=== PATIENT | male | born 1935 | race Caucasian/White ===

== ENCOUNTER 2017-02-23 15:44 | Emergency (ER) | payer BC, OTHER ==
[~2017-02-23] VITALS: Ht 188 cm; Wt 104.3 kg
[~2017-02-23 15:44] MED LIST: CHOL20007 PO; METF-370 PO; SITA50TA PO
[2017-02-23] MEDS ORDERED: ONDANSETRON HCL 4 MG/2 ML VIAL IV ONE (17:30)
[2017-02-23] MEDS ORDERED: MORPHINE SULFATE 10 MG/ML INJ 1ML SDV IV ONE ×2 (17:30→20:15)
[2017-02-23 17:35] LABS: Basophils # (auto) 0.1 uL; Basophils % (auto) 0.7 % (0.0-2.0); Eosinophils # (auto) 0.1 uL; Eosinophils % (auto) 1.8 % (0.0-7.0); Hematocrit 37.2 % (41.0-53.0); Hemoglobin 12.2 g/dL (13.5-17.5); Lymphocytes # (auto) 1.6 uL; Lymphocytes % (auto) 21.9 % (10.0-50.0); Mean Corpuscular Hemoglobin 28.3 pg (28.0-32.0); Mean Corpuscular Hgb Conc. 32.8 g/dL (32.0-36.0); Mean Corpuscular Volume 86.1 fL (80.0-100.0); Monocytes % (auto) 13.2 % (0.0-12.0); Neutrophils # (auto) 4.6 uL; Neutrophils % (auto) 62.4 % (37.0-80.0); Nucleated Red Blood Cells % 0.1 %; Platelet Count (auto) 251 10^3/uL (140-450); Red Blood Cells 4.32 10^6/uL (4.5-5.90); Red Cell Distribution Width 14.3 % (11.8-14.3); White Blood Cell 7.3 10^3/uL (4.4-10.8)
[2017-02-23 17:42] LABS: Albumin 3.2 g/dL (3.4-5.0); Anion Gap 8 (5-15); Calcium 8.8 mg/dL (8.5-10.1); Carbon Dioxide 29 mmol/L (21-32); Chloride 100 mmol/L (98-107); Sodium 137 mmol/L (136-145)
[2017-02-23 17:45] LABS: Alanine Aminotransferase 20 U/L (16-61); Aspartate Aminotransferase 10 U/L (15-37); BUN/Creatinine Ratio 17.5; Blood Urea Nitrogen 18 mg/dL (7-18); GFR African American 89 mL/min; GFR Non-African American 73 mL/min; Glucose 342 mg/dL (74-106); Magnesium 2.3 mg/dL (1.6-2.6)
[2017-02-23 17:50] LABS: Alkaline Phosphatase 83 U/L (45-117); Bilirubin, Total 0.8 mg/dL (0.2-1.0); Total Protein 7.2 g/dL (6.4-8.2)
[2017-02-23] MEDS ORDERED: InsuLIN REG 1unit/0.01ml Soln (100units/ml) IV ONE ×2 (18:30→20:15)
[2017-02-23] MEDS ORDERED: SODIUM CHLORIDE 0.9% 1,000 ML IV ONE (18:45)
[2017-02-23] MEDS ORDERED: cloNIDine HCL 0.1 MG TAB ONE (19:03)
[2017-02-23 19:05] LABS: Urine Bacteria NONE SEEN /hpf (None Seen); Urine Blood Negative /uL (Negative); Urine Specific Gravity 1.041 (1.001-1.035); Urine WBC <1 /hpf (0 - 3)
[2017-02-23] MEDS ORDERED: cloNIDine HCL 0.1 MG TAB PO ONE (19:15)
[2017-02-23 20:52] VITALS: BP 106/58
== END 2017-02-23 21:17 | disposition home or self-care (01) ==
LOC: ER 15:44
DX: R07.89 Other chest pain (principal); M19.90 Unspecified osteoarthritis, unspecified site; E11.9 Type 2 diabetes mellitus without complications; I10 Essential (primary) hypertension; E78.5 Hyperlipidemia, unspecified; Z87.442 Personal history of urinary calculi
CPT/HCPCS: 36415; 71010; 80053; 81001; 82962; 83036; 83735; 84484; 85025; 85652; 93005; 94761; 96361; 96374; 96375; 96376; 99285; J1815; J2270; J2405; J7030

== ENCOUNTER 2017-06-22 09:44 | Inpatient (IN) | payer MEDICARE, BC ==
[~2017-06-22] VITALS: Ht 188 cm; Wt 109.0 kg
[2017-06-22] MEDS ORDERED: SODIUM CHLORIDE 0.9% 1,000 ML IV ONE (10:35)
[2017-06-22 11:15] LABS: Basophils # (auto) 0.1 uL; Basophils % (auto) 0.5 % (0.0-2.0); Eosinophils # (auto) 0 uL; Eosinophils % (auto) 0.1 % (0.0-7.0); Hematocrit 32.9 % (41.0-53.0); Hemoglobin 10.8 g/dL (13.5-17.5); Lymphocytes % (auto) 8.7 % (10.0-50.0); Mean Corpuscular Hemoglobin 27.1 pg (28.0-32.0); Mean Corpuscular Hgb Conc. 32.8 g/dL (32.0-36.0); Mean Corpuscular Volume 82.7 fL (80.0-100.0); Monocytes # (auto) 0.9 uL; Monocytes % (auto) 7.5 % (0.0-12.0); Neutrophils # (auto) 9.8 uL; Neutrophils % (auto) 83.2 % (37.0-80.0); Platelet Count (auto) 370 10^3/uL (140-450); Red Blood Cells 3.98 10^6/uL (4.5-5.90); Red Cell Distribution Width 15.7 % (11.8-14.3); White Blood Cell 11.8 10^3/uL (4.4-10.8)
[2017-06-22 11:31] LABS: Alanine Aminotransferase 24 U/L (16-61); Albumin 2.4 g/dL (3.4-5.0); Alkaline Phosphatase 77 U/L (45-117); Anion Gap 15 (5-15); Aspartate Aminotransferase 22 U/L (15-37); BUN/Creatinine Ratio 7.8; Bilirubin, Total 0.4 mg/dL (0.2-1.0); Calcium 8.1 mg/dL (8.5-10.1); Carbon Dioxide 19 mmol/L (21-32); Chloride 102 mmol/L (98-107); GFR African American 4 mL/min; GFR Non-African American 4 mL/min; Glucose 203 mg/dL (74-106); INR 1.05 (0.9-1.15); Magnesium 2.9 mg/dL (1.6-2.6); Partial Thromboplastin Time 30.6 sec (22.64-33.71); Prothrombin Time 11.4 sec (9.37-12.3); Sodium 136 mmol/L (136-145); Total Protein 6.7 g/dL (6.4-8.2)
[2017-06-22 11:42] LABS: Blood Urea Nitrogen 109 mg/dL (7-18)
[2017-06-22 11:48] LABS: Urine Bacteria FEW /hpf (None Seen); Urine Blood Negative /uL (Negative); Urine Specific Gravity 1.006 (1.001-1.035); Urine WBC 6 /hpf (0 - 3)
[2017-06-22] MEDS ORDERED: MORPHINE SULFATE 4 MG/ML SYR/VIAL IV PRN ×3 (13:15→15:15)
[2017-06-22] MEDS ORDERED: DOCUSATE SOD 100 MG CAP PO PRN (13:15)
[2017-06-22] MEDS ORDERED: DEXTROSE (50%) 50ML SYRG IV PRN ×2 (13:15→13:30)
[2017-06-22] MEDS ORDERED: HYDROcodone-ACET 5/325MG TAB PO PRN ×2 (13:15→15:30)
[2017-06-22] MEDS ORDERED: NITROGLYCERIN 0.4 MG SL TAB SL PRN (13:15)
[2017-06-22] MEDS ORDERED: ACETAMINOPHEN 325 MG TAB PO PRN ×2 (13:15→16:30)
[2017-06-22] MEDS ORDERED: cloNIDine HCL 0.1 MG TAB PO PRN (13:30)
[2017-06-22] MEDS ORDERED: cefTRIAXone 1GM/10ml IVPUSH 10 ML IV ONE (13:30)
[2017-06-22] MEDS: ONDANSETRON HCL 4 MG/2 ML VIAL IV PRN (13:34)
[2017-06-22] MEDS ORDERED: ASPirin-EC 81 mg tab PO SCH (13:45)
[2017-06-22] MEDS ORDERED: LISINOPRIL 20 MG TAB PO SCH (13:45)
[2017-06-22] MEDS: SODIUM CHLOR 0.9% PF (SALINE LOCK) 10ML VIAL IV SCH ×2 (14:49→21:47)
[2017-06-22] MEDS ORDERED: SODIUM CHLORIDE 0.9% 2,000 ML IV ONE (15:00)
[2017-06-22] MEDS ORDERED: ASPI-231 PO (15:33)
[2017-06-22] MEDS ORDERED: GLIP-116 PO (15:33)
[2017-06-22 15:34] LABS: Basophils # (auto) 0 uL; Basophils % (auto) 0.4 % (0.0-2.0); Eosinophils # (auto) 0 uL; Eosinophils % (auto) 0.4 % (0.0-7.0); Hematocrit 36.1 % (41.0-53.0); Hemoglobin 11.7 g/dL (13.5-17.5); Lymphocytes # (auto) 1.1 uL; Lymphocytes % (auto) 9.7 % (10.0-50.0); Mean Corpuscular Hemoglobin 27.2 pg (28.0-32.0); Mean Corpuscular Hgb Conc. 32.5 g/dL (32.0-36.0); Mean Corpuscular Volume 83.7 fL (80.0-100.0); Monocytes # (auto) 0.8 uL; Neutrophils # (auto) 9.1 uL; Neutrophils % (auto) 82.5 % (37.0-80.0); Platelet Count (auto) 399 10^3/uL (140-450); Red Blood Cells 4.32 10^6/uL (4.5-5.90); Red Cell Distribution Width 15.4 % (11.8-14.3)
[2017-06-22] MEDS ORDERED: LISI-646 PO (15:34)
[2017-06-22] MEDS ORDERED: ATO40T PO (15:34)
[2017-06-22] MEDS ORDERED: MELA3TAB27 PO (15:34)
[2017-06-22 15:53] LABS: Calcium 8.5 mg/dL (8.5-10.1); Potassium 4.5 mmol/L (3.5-5.1)
[2017-06-22] MEDS ORDERED: INSREGI SC (15:59)
[2017-06-22] MEDS ORDERED: MELA3TAB18 PO (15:59)
[2017-06-22 16:01] LABS: BUN/Creatinine Ratio 9.7
[2017-06-22] MEDS: SODIUM CHLORIDE 0.9% 1,000 ML IV SCH ×2 (16:47→21:47)
[2017-06-22 17:00] VITALS: BP 160/83
[2017-06-22] MEDS: FAMOTIDINE 20 MG TAB PO SCH (17:00)
[2017-06-22] MEDS ORDERED: InsuLIN REG 1unit/0.01ml Soln (100units/ml) SC SCH (17:00)
[2017-06-22] MEDS ORDERED: ACCU-CHEK COMFORT CURVE STRIP VI SCH (17:00)
[2017-06-22] MEDS: ACCU-CHEK COMFORT CURVE STRIP VI SCH ×2 (17:05→21:52)
[2017-06-22] MEDS: InsuLIN REG 1unit/0.01ml Soln (100units/ml) SC SCH ×2 (17:07→22:21)
[2017-06-22] MEDS: glipiZIDE 5 MG TAB PO SCH (18:05)
[2017-06-22] MEDS: Boost Glucose Control 8 Ounces PO SCH (18:05)
[2017-06-22] MEDS: ATORVASTATIN 20 MG TAB PO SCH (21:46)
[2017-06-22] MEDS: TEMAZEPAM 15 MG CAP PO PRN (21:46)
[2017-06-22] MEDS: ASCORBIC ACID 500 MG TAB PO SCH (21:46)
[2017-06-22 22:50] VITALS: BP 150/67
[2017-06-23 05:20] VITALS: BP 164/85
[2017-06-23] MEDS: SODIUM CHLORIDE 0.9% 1,000 ML IV SCH ×2 (06:35→23:00)
[2017-06-23] MEDS: SODIUM CHLOR 0.9% PF (SALINE LOCK) 10ML VIAL IV SCH ×3 (06:37→22:00)
[2017-06-23] MEDS: glipiZIDE 5 MG TAB PO SCH ×2 (06:38→17:59)
[2017-06-23] MEDS: ACCU-CHEK COMFORT CURVE STRIP VI SCH ×4 (06:39→22:00)
[2017-06-23 06:55] LABS: Basophils # (auto) 0.1 uL; Basophils % (auto) 0.5 % (0.0-2.0); Eosinophils # (auto) 0.1 uL; Eosinophils % (auto) 1.2 % (0.0-7.0); Hematocrit 32.7 % (41.0-53.0); Lymphocytes # (auto) 1.3 uL; Lymphocytes % (auto) 12.1 % (10.0-50.0); Mean Corpuscular Hemoglobin 27.7 pg (28.0-32.0); Mean Corpuscular Hgb Conc. 33.7 g/dL (32.0-36.0); Mean Corpuscular Volume 82.3 fL (80.0-100.0); Monocytes # (auto) 1.1 uL; Monocytes % (auto) 10.4 % (0.0-12.0); Neutrophils # (auto) 7.9 uL; Neutrophils % (auto) 75.8 % (37.0-80.0); Platelet Count (auto) 378 10^3/uL (140-450); Red Blood Cells 3.97 10^6/uL (4.5-5.90); Red Cell Distribution Width 15.4 % (11.8-14.3); White Blood Cell 10.4 10^3/uL (4.4-10.8)
[2017-06-23] MEDS: InsuLIN REG 1unit/0.01ml Soln (100units/ml) SC SCH ×4 (07:07→22:00)
[2017-06-23 07:12] LABS: Albumin 2.5 g/dL (3.4-5.0); Calcium 8.3 mg/dL (8.5-10.1); Potassium 4.1 mmol/L (3.5-5.1)
[2017-06-23 07:15] LABS: BUN/Creatinine Ratio 18.2; Bilirubin, Total 0.4 mg/dL (0.2-1.0)
[2017-06-23 07:16] LABS: Total Protein 6.5 g/dL (6.4-8.2)
[2017-06-23] MEDS: Boost Glucose Control 8 Ounces PO SCH ×3 (07:57→18:00)
[2017-06-23 09:00] VITALS: BP 151/85
[2017-06-23] MEDS: cefTRIAXone 1GM/10ml IVPUSH 10 ML IV SCH (09:16)
[2017-06-23] MEDS ORDERED: ACETAMINOPHEN 325 MG TAB PO PRN (10:15)
[2017-06-23] MEDS ORDERED: HYDROcodone-ACET 5/325MG TAB PO PRN (10:15)
[2017-06-23] MEDS: ZINC SULFATE 220 MG CAP PO SCH (10:23)
[2017-06-23] MEDS: MULTIPLE VITAMIN TAB PO SCH (10:23)
[2017-06-23] MEDS: ASCORBIC ACID 500 MG TAB PO SCH ×2 (10:23→22:27)
[2017-06-23] MEDS: FAMOTIDINE 20 MG TAB PO SCH (10:24)
[2017-06-23] MEDS: MORPHINE SULFATE 4 MG/ML SYR/VIAL IV PRN (10:51)
[2017-06-23 13:00] VITALS: BP 153/78
[2017-06-23 17:00] VITALS: BP 149/78
[2017-06-23] MEDS: TAMSULOSIN HYDROCHLORIDE 0.4 MG CAP PO SCH (18:00)
[2017-06-23 21:50] VITALS: BP 150/86
[2017-06-23] MEDS: TEMAZEPAM 15 MG CAP PO PRN (22:27)
[2017-06-23] MEDS: ATORVASTATIN 20 MG TAB PO SCH (22:28)
[2017-06-23] MEDS: DOXAZOSIN MESYL 2 MG TAB PO SCH (22:29)
[2017-06-24] MEDS: ONDANSETRON HCL 4 MG/2 ML VIAL IV PRN (01:30)
[2017-06-24 05:00] VITALS: BP 162/91
[2017-06-24] MEDS: SODIUM CHLOR 0.9% PF (SALINE LOCK) 10ML VIAL IV SCH ×3 (06:00→22:08)
[2017-06-24 06:19] LABS: Basophils # (auto) 0 uL; Basophils % (auto) 0.4 % (0.0-2.0); Eosinophils # (auto) 0.1 uL; Eosinophils % (auto) 0.5 % (0.0-7.0); Hematocrit 34.8 % (41.0-53.0); Hemoglobin 11.4 g/dL (13.5-17.5); Lymphocytes # (auto) 1.3 uL; Lymphocytes % (auto) 9.4 % (10.0-50.0); Mean Corpuscular Hemoglobin 27.3 pg (28.0-32.0); Mean Corpuscular Hgb Conc. 32.6 g/dL (32.0-36.0); Mean Corpuscular Volume 83.5 fL (80.0-100.0); Monocytes # (auto) 0.7 uL; Monocytes % (auto) 5.2 % (0.0-12.0); Neutrophils # (auto) 11.6 uL; Neutrophils % (auto) 84.5 % (37.0-80.0); Platelet Count (auto) 383 10^3/uL (140-450); Red Blood Cells 4.17 10^6/uL (4.5-5.90); Red Cell Distribution Width 15.6 % (11.8-14.3); White Blood Cell 13.7 10^3/uL (4.4-10.8)
[2017-06-24] MEDS: glipiZIDE 5 MG TAB PO SCH ×2 (06:33→17:38)
[2017-06-24 06:34] LABS: BUN/Creatinine Ratio 12.3; Calcium 8.2 mg/dL (8.5-10.1); Potassium 4.3 mmol/L (3.5-5.1)
[2017-06-24] MEDS: ACCU-CHEK COMFORT CURVE STRIP VI SCH ×4 (06:34→22:11)
[2017-06-24] MEDS: InsuLIN REG 1unit/0.01ml Soln (100units/ml) SC SCH ×4 (06:46→22:10)
[2017-06-24 08:00] VITALS: BP 128/62
[2017-06-24] MEDS: Boost Glucose Control 8 Ounces PO SCH ×3 (08:38→17:39)
[2017-06-24 09:00] VITALS: BP 128/62
[2017-06-24] MEDS: FAMOTIDINE 20 MG TAB PO SCH (09:24)
[2017-06-24] MEDS: SODIUM CHLORIDE 0.9% 1,000 ML IV SCH (09:24)
[2017-06-24] MEDS: ZINC SULFATE 220 MG CAP PO SCH (09:24)
[2017-06-24] MEDS: cefTRIAXone 1GM/10ml IVPUSH 10 ML IV SCH (09:24)
[2017-06-24] MEDS: MULTIPLE VITAMIN TAB PO SCH (09:24)
[2017-06-24] MEDS: ASCORBIC ACID 500 MG TAB PO SCH (09:24)
[2017-06-24] MEDS: MORPHINE SULFATE 4 MG/ML SYR/VIAL IV PRN (12:22)
[2017-06-24] MEDS ORDERED: LACTULOSE 20Gm/30ML SOLN PO ONE (13:00)
[2017-06-24] MEDS ORDERED: DOCUSATE SOD 100 MG CAP PO ONE (13:00)
[2017-06-24 17:00] VITALS: BP 157/73
[2017-06-24] MEDS: TAMSULOSIN HYDROCHLORIDE 0.4 MG CAP PO SCH (17:38)
[2017-06-24 20:00] VITALS: BP 142/69
[2017-06-24] MEDS: ATORVASTATIN 20 MG TAB PO SCH (21:44)
[2017-06-24] MEDS: DOXAZOSIN MESYL 2 MG TAB PO SCH (21:46)
[2017-06-24 21:54] VITALS: BP 142/69
[2017-06-25 05:00] VITALS: BP 153/87
[2017-06-25] MEDS: SODIUM CHLOR 0.9% PF (SALINE LOCK) 10ML VIAL IV SCH (06:00)
[2017-06-25] MEDS: ACCU-CHEK COMFORT CURVE STRIP VI SCH ×2 (06:41→11:28)
[2017-06-25 07:03] LABS: Basophils # (auto) 0.1 uL; Basophils % (auto) 0.6 % (0.0-2.0); Eosinophils # (auto) 0.4 uL; Eosinophils % (auto) 3.1 % (0.0-7.0); Hematocrit 32.6 % (41.0-53.0); Hemoglobin 10.6 g/dL (13.5-17.5); Lymphocytes # (auto) 1.4 uL; Lymphocytes % (auto) 11.6 % (10.0-50.0); Mean Corpuscular Hemoglobin 27.4 pg (28.0-32.0); Mean Corpuscular Hgb Conc. 32.7 g/dL (32.0-36.0); Monocytes # (auto) 0.8 uL; Monocytes % (auto) 6.6 % (0.0-12.0); Neutrophils # (auto) 9.4 uL; Neutrophils % (auto) 78.1 % (37.0-80.0); Platelet Count (auto) 349 10^3/uL (140-450); Red Blood Cells 3.88 10^6/uL (4.5-5.90); Red Cell Distribution Width 15.1 % (11.8-14.3); White Blood Cell 12.1 10^3/uL (4.4-10.8)
[2017-06-25] MEDS: glipiZIDE 5 MG TAB PO SCH (07:16)
[2017-06-25] MEDS: InsuLIN REG 1unit/0.01ml Soln (100units/ml) SC SCH ×2 (07:17→11:28)
[2017-06-25 07:21] LABS: BUN/Creatinine Ratio 9.7; Potassium 4.2 mmol/L (3.5-5.1)
[2017-06-25] MEDS: Boost Glucose Control 8 Ounces PO SCH ×2 (07:59→12:26)
[2017-06-25 08:05] VITALS: BP 153/71
[2017-06-25] MEDS: cefTRIAXone 1GM/10ml IVPUSH 10 ML IV SCH (09:18)
[2017-06-25] MEDS: MULTIPLE VITAMIN TAB PO SCH (09:42)
[2017-06-25] MEDS: FAMOTIDINE 20 MG TAB PO SCH (09:42)
[2017-06-25] MEDS: MORPHINE SULFATE 4 MG/ML SYR/VIAL IV PRN (11:27)
[2017-06-25 12:41] VITALS: BP 151/84
[2017-06-25 13:57] VITALS: BP 142/69
== END 2017-06-25 14:30 | disposition home health service (06) | DRG 682 ==
LOC: ER 09:44 → EDBD 09:44 → TELE 09:45 → TELE-WESTW 15:26
PROVIDERS: ADMIT Internal Medicine; ATTEND Internal Medicine
DX: I12.0 Hypertensive chronic kidney disease with stage 5 chronic kidney disease or end stage renal disease (principal); N18.6 End stage renal disease; R65.11 Systemic inflammatory response syndrome (SIRS) of non-infectious origin with acute organ dysfunction; N17.9 Acute kidney failure, unspecified; E44.0 Moderate protein-calorie malnutrition; I95.9 Hypotension, unspecified; E11.21 Type 2 diabetes mellitus with diabetic nephropathy; E11.65 Type 2 diabetes mellitus with hyperglycemia; E87.2 Acidosis; E83.41 Hypermagnesemia; E11.22 Type 2 diabetes mellitus with diabetic chronic kidney disease; N39.0 Urinary tract infection, site not specified; N13.8 Other obstructive and reflux uropathy; N40.1 Benign prostatic hyperplasia with lower urinary tract symptoms; E83.51 Hypocalcemia; D63.8 Anemia in other chronic diseases classified elsewhere; N18.9 Chronic kidney disease, unspecified; B96.20 Unspecified Escherichia coli [E. coli] as the cause of diseases classified elsewhere; E78.5 Hyperlipidemia, unspecified; R31.9 Hematuria, unspecified; G47.00 Insomnia, unspecified; K59.00 Constipation, unspecified; M19.90 Unspecified osteoarthritis, unspecified site; R33.8 Other retention of urine; Z79.4 Long term (current) use of insulin; Z82.0 Family history of epilepsy and other diseases of the nervous system; Z82.49 Family history of ischemic heart disease and other diseases of the circulatory system; Z87.442 Personal history of urinary calculi; Z79.899 Other long term (current) drug therapy; Z90.89 Acquired absence of other organs; Z85.89 Personal history of malignant neoplasm of other organs and systems; Z68.30 Body mass index [BMI] 30.0-30.9, adult
CPT/HCPCS: 36415; 51702; 70450; 71045; 76775; 80048; 80053; 81001; 82962; 83036; 83735; 84443; 84484; 85025; 85610; 85730; 87081; 87086; 87088; 87186; 93005; 93306; 94761; 96361; 96374; 96375; J1815; J2405

== ENCOUNTER 2017-07-21 09:33 | Emergency (ER) | payer BC, MEDICARE ==
[~2017-07-21] VITALS: Ht 188 cm; Wt 99.8 kg
[~2017-07-21 09:33] MED LIST changes: +ASPI-231 PO; +ATO40T PO; -CHOL20007 PO; +GLIP-116 PO; +INSREGI SC; +LISI-646 PO; +MELA3TAB18 PO; -METF-370 PO; -SITA50TA PO
[2017-07-21 10:24] LABS: Basophils # (auto) 0 uL; Basophils % (auto) 0.4 % (0.0-2.0); Eosinophils # (auto) 0 uL; Eosinophils % (auto) 0.2 % (0.0-7.0); Hematocrit 36.3 % (41.0-53.0); Hemoglobin 11.8 g/dL (13.5-17.5); Lymphocytes % (auto) 12.2 % (10.0-50.0); Mean Corpuscular Hemoglobin 27.6 pg (28.0-32.0); Mean Corpuscular Hgb Conc. 32.4 g/dL (32.0-36.0); Mean Corpuscular Volume 85.2 fL (80.0-100.0); Monocytes # (auto) 0.4 uL; Monocytes % (auto) 4.8 % (0.0-12.0); Neutrophils # (auto) 6.5 uL; Neutrophils % (auto) 82.4 % (37.0-80.0); Platelet Count (auto) 255 10^3/uL (140-450); Red Blood Cells 4.26 10^6/uL (4.5-5.90); Red Cell Distribution Width 16.2 % (11.8-14.3); White Blood Cell 7.8 10^3/uL (4.4-10.8)
[2017-07-21 10:42] LABS: Albumin 3.5 g/dL (3.4-5.0); BUN/Creatinine Ratio 17.8; Calcium 8.8 mg/dL (8.5-10.1); Potassium 4.2 mmol/L (3.5-5.1); Total Protein 7.3 g/dL (6.4-8.2)
[2017-07-21 10:58] LABS: Urine Bacteria FEW /hpf (None Seen); Urine Blood TRACE /uL (Negative); Urine Hyaline Cast FEW /lpf (0 - 2); Urine Mucus FEW (None Seen); Urine Specific Gravity 1.012 (1.001-1.035); Urine WBC 191 /hpf (0 - 3)
[2017-07-21 12:15] VITALS: BP 131/78
[2017-07-21] MEDS ORDERED: cefTRIAXone 1GM/10ml IVPUSH 10 ML IV ONE (12:30)
[2017-07-21] MEDS ORDERED: cefTRIAXone SOD 1,000 MG VL ONE (12:43)
[2017-07-21] MEDS ORDERED: cefTRIAXone W LIDOCAINE 1 GM IM IM ONE (12:45)
== END 2017-07-21 12:59 | disposition home or self-care (01) ==
LOC: ER 09:33
DX: N39.0 Urinary tract infection, site not specified (principal); M19.90 Unspecified osteoarthritis, unspecified site; E11.9 Type 2 diabetes mellitus without complications; E78.5 Hyperlipidemia, unspecified; I10 Essential (primary) hypertension; Z87.442 Personal history of urinary calculi
CPT/HCPCS: 36415; 71046; 80053; 81001; 84484; 85025; 87040; 87086; 87088; 87186; 93005; 94761; 96372; 99285; J0696

== ENCOUNTER 2017-07-29 13:23 | Emergency (ER) | payer BC ==
[~2017-07-29] VITALS: Ht 188 cm; Wt 98.9 kg
[2017-07-29 13:44] VITALS: BP 5/104
[2017-07-29 15:54] LABS: Urine Bacteria FEW /hpf (None Seen); Urine Blood TRACE /uL (Negative); Urine Hyaline Cast FEW /lpf (0 - 2); Urine Mucus FEW (None Seen); Urine Specific Gravity 1.028 (1.001-1.035); Urine WBC 363 /hpf (0 - 3); Urine WBC Clumps PRESENT /hpf (None Seen)
[2017-07-29] MEDS ORDERED: cefTRIAXone SOD 1,000 MG VL ONE (16:07)
[2017-07-29] MEDS ORDERED: LIDOCAINE 1% (LOCAL ANESTH.) PF 5ml SDV ONE (16:07)
[2017-07-29] MEDS ORDERED: cefTRIAXone W LIDOCAINE 1 GM IM IM ONE (16:15)
== END 2017-07-29 16:28 | disposition home or self-care (01) ==
LOC: ER 13:23
DX: S00.12XA Contusion of left eyelid and periocular area, initial encounter (principal); N39.0 Urinary tract infection, site not specified; M19.90 Unspecified osteoarthritis, unspecified site; E11.9 Type 2 diabetes mellitus without complications; E78.5 Hyperlipidemia, unspecified; I10 Essential (primary) hypertension; Z87.442 Personal history of urinary calculi; Z79.82 Long term (current) use of aspirin; Z79.84 Long term (current) use of oral hypoglycemic drugs; Z79.4 Long term (current) use of insulin; W18.39XA Other fall on same level, initial encounter; Y93.89 Activity, other specified; Y92.89 Other specified places as the place of occurrence of the external cause; Y99.8 Other external cause status
CPT/HCPCS: 70450; 70480; 70486; 81001; 81002; 82962; 96372; 99285; J0696

== ENCOUNTER 2023-01-04 20:04 | Emergency (ER) | payer BC ==
[~2023-01-04] VITALS: Ht 188 cm; Wt 86.1 kg
[~2023-01-04 20:04] MED LIST changes: -ASPI-231 PO; +ASPI1TAB20 PO; -GLIP-116 PO; +GLIP10TA9 PO; -LISI-646 PO; +LISI20TA56 PO
[2023-01-04 21:30] VITALS: PULSE 89; RESP 20; O2SAT 95
[2023-01-04] MEDS ORDERED: LACTATED RINGER'S 1,000 ML IV ONE (22:00)
[2023-01-04 22:14] LABS: Basophils # (auto) 0.1 10 ^3/uL (0-0.2); Basophils % (auto) 1.2 % (0.0-2.0); Eosinophils # (auto) 0.2 10 ^3/uL (0-0.8); Eosinophils % (auto) 2.5 % (0.0-7.0); Hematocrit 35.7 % (41.0-53.0); Hemoglobin 11.9 g/dL (13.5-17.5); Lymphocytes # (auto) 2.1 10 ^3/uL (0.4-5.4); Lymphocytes % (auto) 27.9 % (10.0-50.0); Mean Corpuscular Hemoglobin 28.6 pg (28.0-32.0); Mean Corpuscular Hgb Conc. 33.4 g/dL (32.0-36.0); Mean Corpuscular Volume 85.6 fL (80.0-100.0); Monocytes # (auto) 0.6 10 ^3/uL (0-1.3); Monocytes % (auto) 8.4 % (0.0-12.0); Neutrophils # (auto) 4.6 10 ^3/uL (1.6-8.6); Red Blood Cells 4.17 10^6/uL (4.5-5.90); Red Cell Distribution Width 15.3 % (11.8-14.3); White Blood Cell 7.6 10^3/uL (4.4-10.8)
[2023-01-04 22:28] LABS: Urine Bacteria NONE SEEN /hpf (None Seen); Urine Blood Negative /uL (Negative); Urine Clarity Clear (Clear); Urine Color Yellow (Yellow); Urine Mucus FEW (None Seen); Urine Protein, UAD TRACE (Negative); Urine Specific Gravity 1.034 (1.001-1.035); Urine Urobilinogen Normal (Negative); Urine WBC 1 /hpf (0 - 3); Urine pH 5.5 (5.0-8.0)
[2023-01-04 22:35] LABS: INR 1.01 (0.9-1.15); Partial Thromboplastin Time 29.1 SEC (24.5-34.5); Prothrombin Time 10.6 sec (9.3-11.8)
[2023-01-04 22:40] LABS: Alanine Aminotransferase 12 U/L (7-40); Albumin 3.9 g/dL (3.2-4.8); Alkaline Phosphatase 71 U/L (46-116); Anion Gap 3 (5-15); Aspartate Aminotransferase 10 U/L (13-40); BUN/Creatinine Ratio 37.3 (10.0-20.0); Bilirubin, Total 0.5 mg/dL (0.2-1.0); Blood Urea Nitrogen 28 mg/dL (9-23); Calcium 9.3 mg/dL (8.7-10.4); Carbon Dioxide 30 mmol/L (20-30); Chloride 105 mmol/L (98-107); Glucose 176 mg/dL (74-106); Magnesium 1.7 mg/dL (1.6-2.6); Potassium 3.9 mmol/L (3.5-5.1); Sodium 138 mmol/L (136-145); Total Protein 6.5 g/dL (5.7-8.2)
[2023-01-05] MEDS ORDERED: LACTATED RINGER'S 2,000 ML IV ONE (02:00)
[2023-01-05] MEDS ORDERED: InsuLIN REG 1unit/0.01ml Soln (100units/ml) IV ONE (02:00)
[2023-01-05 03:30] VITALS: BP 137/74; PULSE 95; RESP 22; TEMP 97.4; O2SAT 95
== END 2023-01-05 03:56 | disposition home or self-care (01) ==
LOC: ER 20:04
DX: E11.65 Type 2 diabetes mellitus with hyperglycemia (principal); D64.9 Anemia, unspecified; E86.0 Dehydration; R79.89 Other specified abnormal findings of blood chemistry; E78.5 Hyperlipidemia, unspecified; I10 Essential (primary) hypertension; Z79.899 Other long term (current) drug therapy; Z87.442 Personal history of urinary calculi; Z90.89 Acquired absence of other organs
CPT/HCPCS: 36415; 71045; 80053; 81001; 82962; 83735; 83880; 84484; 85025; 85610; 85730; 96360; 96361

== ENCOUNTER 2023-01-09 11:30 | Emergency (ER) | payer BC ==
[~2023-01-09] VITALS: Ht 172.7 cm; Wt 87.4 kg
[2023-01-09] MEDS ORDERED: SODIUM CHLORIDE 0.9% 1,000 ML IV ONE (13:15)
[2023-01-09 13:35] LABS: Basophils # (auto) 0.1 10 ^3/uL (0-0.2); Basophils % (auto) 1.1 % (0.0-2.0); Eosinophils # (auto) 0.1 10 ^3/uL (0-0.8); Eosinophils % (auto) 1.1 % (0.0-7.0); Hematocrit 36.3 % (41.0-53.0); Hemoglobin 12.3 g/dL (13.5-17.5); Lymphocytes % (auto) 22.7 % (10.0-50.0); Mean Corpuscular Hemoglobin 29.1 pg (28.0-32.0); Mean Corpuscular Volume 85.8 fL (80.0-100.0); Monocytes # (auto) 0.7 10 ^3/uL (0-1.3); Monocytes % (auto) 7.7 % (0.0-12.0); Neutrophils # (auto) 5.8 10 ^3/uL (1.6-8.6); Neutrophils % (auto) 67.4 % (37.0-80.0); Nucleated Red Blood Cells % 0.1 %; Red Blood Cells 4.23 10^6/uL (4.5-5.90); Red Cell Distribution Width 15.1 % (11.8-14.3); White Blood Cell 8.6 10^3/uL (4.4-10.8)
[2023-01-09 13:36] VITALS: BP 88/52; PULSE 101; RESP 17; TEMP 97.8; O2SAT 98
[2023-01-09 13:50] LABS: Alanine Aminotransferase 10 U/L (7-40); Albumin 3.9 g/dL (3.2-4.8); Alkaline Phosphatase 70 U/L (46-116); Anion Gap 3 (5-15); Aspartate Aminotransferase 8 U/L (13-40); BUN/Creatinine Ratio 29.3 (10.0-20.0); Blood Urea Nitrogen 24 mg/dL (9-23); Calcium 9.7 mg/dL (8.7-10.4); Carbon Dioxide 31 mmol/L (20-30); Chloride 103 mmol/L (98-107); Glucose 111 mg/dL (74-106); Potassium 4.3 mmol/L (3.5-5.1); Sodium 137 mmol/L (136-145)
[2023-01-09 13:51] LABS: Total Protein 6.9 g/dL (5.7-8.2)
[2023-01-09 14:35] LABS: Urine Bacteria NONE SEEN /hpf (None Seen); Urine Blood Negative /uL (Negative); Urine Clarity Clear (Clear); Urine Color Yellow (Yellow); Urine Mucus FEW (None Seen); Urine Protein, UAD TRACE (Negative); Urine Specific Gravity 1.029 (1.001-1.035); Urine Urobilinogen Normal (Negative); Urine WBC 2 /hpf (0 - 3); Urine pH 5.5 (5.0-8.0)
[2023-01-09 14:40] LABS: Bilirubin, Total 0.7 mg/dL (0.2-1.0)
[2023-01-09] MEDS ORDERED: cefTRIAXone SOD 1,000 MG VL IM ONE (15:00)
[2023-01-09] MEDS ORDERED: LISI10TA34 PO (15:24)
== END 2023-01-09 15:30 | disposition home or self-care (01) ==
LOC: ER 11:30
DX: H66.91 Otitis media, unspecified, right ear (principal); E86.0 Dehydration; M19.90 Unspecified osteoarthritis, unspecified site; I10 Essential (primary) hypertension; E11.9 Type 2 diabetes mellitus without complications; E78.5 Hyperlipidemia, unspecified; Z51.81 Encounter for therapeutic drug level monitoring; Z87.442 Personal history of urinary calculi; Z90.89 Acquired absence of other organs; Z98.890 Other specified postprocedural states; Z79.4 Long term (current) use of insulin; Z79.82 Long term (current) use of aspirin; Z79.899 Other long term (current) drug therapy
CPT/HCPCS: 36415; 80053; 81001; 85025; 93005; 96360; 96372; 99284; J0696; J7030

== ENCOUNTER 2023-10-23 09:07 | Emergency (ER) | payer BC, OTHER ==
[~2023-10-23] VITALS: Ht 188 cm; Wt 77.7 kg
[~2023-10-23 09:07] MED LIST changes: -ATO40T PO; +ATOR-507 PO; +LISI10TA34 PO
[2023-10-23] MEDS: ACETAMINOPHEN 500 MG TAB PO ONE (10:24)
[2023-10-23 10:56] LABS: Basophils # (auto) 0.1 10 ^3/uL (0-0.2); Basophils % (auto) 0.7 % (0.0-2.0); Eosinophils # (auto) 0 10 ^3/uL (0-0.8); Hematocrit 39.7 % (41.0-53.0); Hemoglobin 13.2 g/dL (13.5-17.5); Lymphocytes # (auto) 1.3 10 ^3/uL (0.4-5.4); Lymphocytes % (auto) 13.8 % (10.0-50.0); Mean Corpuscular Hemoglobin 28.3 pg (28.0-32.0); Mean Corpuscular Hgb Conc. 33.3 g/dL (32.0-36.0); Monocytes # (auto) 0.5 10 ^3/uL (0-1.3); Monocytes % (auto) 5.1 % (0.0-12.0); Neutrophils # (auto) 7.9 10 ^3/uL (1.6-8.6); Neutrophils % (auto) 80.4 % (37.0-80.0); Red Blood Cells 4.66 10^6/uL (4.5-5.90); Red Cell Distribution Width 16.1 % (11.8-14.3); White Blood Cell 9.8 10^3/uL (4.4-10.8)
[2023-10-23 11:01] LABS: Urine Bacteria None Seen /hpf (None Seen)
[2023-10-23 11:17] VITALS: BP 111/65; PULSE 79; RESP 16; TEMP 97.4; O2SAT 96
[2023-10-23 11:18] LABS: Urine Blood Negative /uL (Negative); Urine Clarity Clear (Clear); Urine Color Light-Yellow (Yellow); Urine Protein, UAD Negative (Negative); Urine Specific Gravity 1.033 (1.001-1.035); Urine Urobilinogen Normal (Negative); Urine WBC <1 /hpf (0 - 3); Urine pH 5.5 (5.0-9.0)
[2023-10-23 11:18] LABS: Alanine Aminotransferase 18 U/L (7-40); Albumin 4.1 g/dL (3.2-4.8); Alkaline Phosphatase 68 U/L (46-116); Anion Gap 2 (5-15); Aspartate Aminotransferase 16 U/L (13-40); Bilirubin, Total 0.8 mg/dL (0.2-1.0); Blood Urea Nitrogen 20 mg/dL (9-23); Carbon Dioxide 30 mmol/L (20-30); Chloride 104 mmol/L (98-107); Glucose 127 mg/dL (74-106); Sodium 136 mmol/L (136-145); Total Protein 6.9 g/dL (5.7-8.2)
[2023-10-23] MEDS ORDERED: ACET-1080 PO (11:41)
[2023-10-23] MEDS ORDERED: CEPH500C PO (11:41)
== END 2023-10-23 11:47 | disposition home or self-care (01) ==
LOC: ER 09:07
DX: S01.111A Laceration without foreign body of right eyelid and periocular area, initial encounter (principal); R51.9 Headache, unspecified; E11.9 Type 2 diabetes mellitus without complications; E78.5 Hyperlipidemia, unspecified; I10 Essential (primary) hypertension; Z79.82 Long term (current) use of aspirin; Z79.1 Long term (current) use of non-steroidal anti-inflammatories (NSAID); Z79.84 Long term (current) use of oral hypoglycemic drugs; Z79.899 Other long term (current) drug therapy; Z87.442 Personal history of urinary calculi; Z90.89 Acquired absence of other organs; Z98.890 Other specified postprocedural states; W01.10XA Fall on same level from slipping, tripping and stumbling with subsequent striking against unspecified object, initial encounter; Y93.89 Activity, other specified; Y92.89 Other specified places as the place of occurrence of the external cause; Y99.8 Other external cause status
CPT/HCPCS: 12013; 36415; 70450; 80053; 81001; 84443; 85025

== ENCOUNTER 2024-05-01 05:51 | Emergency (ER) | payer MEDICARE, MEDICAID ==
[~2024-05-01] VITALS: Ht 188 cm; Wt 74.7 kg
[~2024-05-01 05:51] MED LIST changes: +ACET-1080 PO; +CEPH500C PO
--- NOTE | 2024-05-01 06:56 | ED.PDOC ---
History of Present Illness HPI Comments 89M presents to the ER w/ no prior Hx associated to the c/c of a fall. Pt daughter states that the pt was in the bathroom when he fell and has a approx. 2cm deep Lac on the left lateral eyebrow. Pt reports that he did not LOC. The daughter notes that the pt "seems kind of fuzzy". PMHx of Arthritis, DM, High Lipids, HTN and Kidney Stones. SHx of Hernia Repair and Tonsillectomy. Denies chills, fever, N/V/D, SOB, CP or other associated symptoms, modifiers or recent injuries or sick contact at this time. Chief Complaint: Fall Injury Time Seen by MD: 06:30 Primary Care Provider: unknown Reviewed Notes: Nurses Notes, Medications, Allergies Allergies: Coded Allergies: NO KNOWN ALLERGIES (Unverified , 12/29/14) Home Meds Active Scripts Acetaminophen (Tylenol 8 Hour Arthritis) 650 Mg Tab, 650 MG PO TID, #30 TAB Prov:NELLY RICHARDS 10/23/23 Cephalexin Monohydrate (Cephalexin) 500 Mg Cap, 1 CAP PO QID, #28 CAP Prov:NELLY RICHARDS 10/23/23 Lisinopril (Lisinopril) 10 Mg Tab, 10 MG PO DAILY PRN, #30 TAB Prov:NELLY RICHARDS 01/09/23 Reported Medications Insulin Regular (Human) (Novolin R) 100 Unit/Ml Inj, 1 UNIT SC, INJ 06/22/17 Melatonin-Pyridoxine (Melatonin) 1 Tab Tab, 1 TAB PO HSPRN, TAB 06/22/17 Lisinopril (Lisinopril) 20 Mg Tab, 20 MG PO DAILY for 30 Days, MG 06/22/17 Atorvastatin Calcium (Lipitor) 40 Mg Tab, 1 TAB PO QPM, #90 TAB 1 Refill 06/22/17 Glipizide (Glipizide) 10 Mg Tab, 10 MG PO BID for 30 Days, MG 06/22/17 Aspirin (Aspir-81) 81 Mg Tab, 1 TAB PO DAILY, #30 TAB 5 Refills 06/22/17 Information Source: Patient, Relative (Child) Mode of Arrival: Ambulatory Severity: Moderate Timing: Minutes Duration: Since onset, Minutes Prehospital treatment: None Past Medical History PAST MEDICAL HISTORY: Arthritis, DM, High Lipids, HTN, Kidney Stones Surgical History: Hernia Repair, Tonsillectomy Family History Family History: Reviewed,noncontributory to illness, Unknown Social History Smoker: Non-Smoker Alcohol: Denies ETOH Use Drugs: Denies Drug Use Lives In: Home Constitutional: reports: others (Deep Lac on Left Eyebrow); denies: chills, diaphoresis, fatigue, fever, malaise, sweats, weakness EENTM: denies: blurred vision, double vision, ear bleeding, ear discharge, ear drainage, ear pain, ear ringing, eye pain, eye redness, hearing loss, mouth pain, mouth swelling, nasal discharge, nose bleeding, nose congestion, nose pain, photophobia, tearing, throat pain, throat swelling, voice changes, others Respiratory: denies: cough, hemoptysis, orthopnea, SOB at rest, shortness of breath, SOB with excertion, stridor, wheezing, others Cardiovascular: denies: chest pain, dizzy spells, diaphoresis, Dyspnea on exertion, edema, irregular heart beat, left arm pain, lightheadedness, palpitations, PND, syncope, others Gastrointestinal: denies: abdomen distended, abdominal pain, blood streaked bowels, constipated, diarrhea, dysphagia, difficulty swallowing, hematemesis, melena, nausea, poor appetite, poor fluid intake, rectal bleeding, rectal pain, vomiting, others Genitourinary: denies: burning, dysuria, flank pain, frequency, hematuria, incontinence, penile discharge, penile sore, pain, testicle pain, testicle swelling, urgency, others Neurological: denies: dizziness, fainting, headache, left sided numbness, left sided weakness, numbness, paresthesia, pre-existing deficit, right sided numbness, right sided weakness, seizure, speech problems, tingling, tremors, weakness, others Musculoskeletal: denies: back pain, gout, joint pain, joint swelling, muscle pain, muscle stiffness, neck pain, others Integumetry: denies: bruises, change in color, change in hair/nails, dryness, laceration, lesions, lumps, rash, wounds, others Allergic/Immunocompromised: denies: Difficulty Healing, Frequent Infections, Hives, Itching, others Hematologic/Lymphatic: denies: anemia, blood clots, easy bleeding, easy bruising, swollen glands, others Endocrine: denies: excessive hunger, excessive sweating, excessive thirst, excessive urination, flushing, intolerance to cold, intolerance to heat, unexplained weight gain, unexplained weight loss, others Psychiatric: denies: anxiety, bipolar disorder, depression, hopeless, panic disorder, schizophrenia, sleepless, suicidal, others All Other Systems: Reviewed and Negative Physical Exam Exam Comments approx. 2cm deep Lac on the left lateral eyebrow. General Appearance: No Apparent Distress, Normal HEENT: Normal ENT Inspection, Pharynx Normal, TMs Normal Neck: Full Range of Motion, Non-Tender, Normal, Normal Inspection Respiratory: Chest Non-Tender, Lungs Clear, No Accessory Muscle Use, No Respiratory Distress, Normal Breath Sounds Cardiovascular: No Edema, No JVD, No Murmur, No Gallop, Normal Peripheral Pulses, Regular Rate/Rhythm Breast Exam: Deferred Gastrointestinal: No Organomegaly, Non Tender, No Pulsatile Mass, Normal Bowel Sounds, Soft Genitalia: Deferred Pelvic: Deferred Rectal: Deferred Extremities: No calf tenderness, Normal capillary refill, Normal inspection, Normal range of motion, Non-tender, No pedal edema Musculoskeletal : Apperance: Normal Neurologic: Alert, 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 Was a procedure done?: Yes Sedation Sedation?: No Informed consent obtained: Yes Other Procedure Procedure Long 3cm, while the lips were far apart they were able to close the wound, discussion w/ family and had an excellent result, tetanus shot was given, and return if you have fever, chills or other symptoms. Informed consent obtained: Yes Risks, benefits, and alternati: Yes Differential Dx Considerations may include: His bleed, I trauma, facial bone fractures X-Ray, Labs, Meds, VS Vital Signs Date Time Temp Pulse Resp B/P (MAP) Pulse Ox O2 Delivery O2 Flow Rate FiO2 05/01/24 08:56 82 18 96 Room Air 05/01/24 08:56 97.5 82 18 112/66 (81) 96 97.5 05/01/24 06:07 97.5 95 16 141/79 (99) 95 Lab Test 05/01/24 06:03 Range/Units POC Glucose 136 H 70-106 mg/dl Current Medications Medications (Trade) Dose Ordered Sig/Sugey Route Start Time Stop Time Status Last Admin Diphtheria/ Tetanus/Acell Pertussis (Boostrix T-Dap) 0.5 ml ONCE ONCE IM 05/01/24 08:45 05/01/24 08:48 DC 05/01/24 09:01 Time of 1ST Reevaluation: 07:00 Reevaluation 1ST: Unchanged Patient Education/Counseling: Diagnosis, Treatment, Prognosis Family Education/Counseling: Diagnosis, Treatment, Prognosis Departure 1 Departure Time of Disposition: 17:29 Impression: Primary Impression: Laceration of right eyebrow without complication Additional Impression: Status post fall Disposition: 01 HOME / SELF CARE / HOMELESS Condition: Stable Additional Instructions: Thank you for visiting our Emergency Room. I wish you full and complete recovery. Please follow the following instructions: 1. Take your medication bottles with you to EVERY DOCTOR'S VISIT (including your primary doctor). 2. Please follow up with your primary doctor in 2-3 days or sooner if symptoms do not improve. 3. Please read all the papers given to you at the time of the discharge so that you understand your condition better. 4. Please note that the emergency room visits are focused and not necessarily comprehensive. Therefore, it is possible that some occult medical conditions may go undiagnosed in the ER. 5. The emergency room visits are not and should not be thought of as replacement for regular visits with your primary doctor. 6. Therefore, it is absolutely critical that you follows up with your primary doctor on regular basis to make sure you receives a complete and comprehensive care. 7. I recommended the you take the hospital discharge papers to your primary care physician and other doctors' offices with you. 8. Go to your nearest emergency room if you think your condition gets worse or you think your condition is an emergency. Return to ER in two days for wound re-evaluation Discharged With: Self Critical Care Note Critical Care Time?: No Stability Stability form required: No I personally scribed for SHALA PATINO MD ([email or web address]) on 05/01/24 at 06:55. Electronically submitted by Alexandro Gerber ([email or web address]). I personally scribed for SHALA PATINO MD ([email or web address]) on 05/01/24 at 08:59. Electronically submitted by Alexandro Gerber ([email or web address]). SHALA PATINO MD May 01, 2024 06:55
--- NOTE | 2024-05-01 07:24 | DVH ---
CLINICAL INFORMATION: 89 years old, Male; trauma. TECHNIQUE: Axial imaging was obtained through the brain without contrast. Coronal and sagittal refor matted images were obtained, reviewed, and stored. Images were reviewed in brain and bone windows. A ll CT scans at this medical facility are performed using dose modulation techniques as appropriate to a performed exam including the following: Automated exposure control was utilized; adjustment of the MA and/or KV according to patient size; and use of iterative reconstruction technique. CTDIvol = 53.89 mGy DLP = 1081.23 mGy-cm COMPARISON: CT HEAD WITHOUT CONTRAST on DOS: 10/23/23 FINDINGS: There is no acute intracranial hemorrhage or extraaxial fluid collection. No mass effect o r midline shift. Scattered areas of hypoattenuation are seen in the periventricular and subcortical w marvin matter, which are nonspecific but most likely sequelae of small vessel ischemic disease. The alma delia tricles and sulci are within normal limits in size for age. Basal cisterns are patent. The calvar ium is unremarkable. Paranasal sinuses and mastoid air cells are clear. IMPRESSION: 1. No CT evidence of acute intracranial abnormality. 2. Nonacute findings as described above.
[2024-05-01 08:56] VITALS: BP 112/66; PULSE 82; RESP 18; TEMP 97.5; O2SAT 96
[2024-05-01] MEDS: TETANUS-DIPTH-ACEL PERTUSSIS 0.5ML SYR Tdap IM ONE (09:01)
== END 2024-05-01 09:03 | disposition home or self-care (01) ==
LOC: ER 05:51
DX: S01.112A Laceration without foreign body of left eyelid and periocular area, initial encounter (principal); S09.90XA Unspecified injury of head, initial encounter; E11.9 Type 2 diabetes mellitus without complications; I10 Essential (primary) hypertension; Z90.89 Acquired absence of other organs; M19.90 Unspecified osteoarthritis, unspecified site; Z87.442 Personal history of urinary calculi; W19.XXXA Unspecified fall, initial encounter; Y93.89 Activity, other specified; Y92.89 Other specified places as the place of occurrence of the external cause; Y99.8 Other external cause status
CPT/HCPCS: 70450; 82962; 90471; 90715